=== PATIENT | male | born 1935 | race Caucasian/White ===

== ENCOUNTER → 2016-07-08 | Outpatient (CLI) | payer MEDICARE ==
--- NOTE | 2016-07-08 12:05 | FL ---
Modified barium swallow. HISTORY: Dysphagia. Modified barium swallow was performed with the department of speech pathology. The patient was prese nted with various consistencies of barium. There is penetration to the level of the vocal cords with various barium mixtures. No evidence for as piration at this time. Full report is to follow from the department of speech pathology. Impression: Penetration to the level of the vocal cords.
== END | disposition home or self-care (01) ==
LOC: RADFLMAIN 10:11
PROVIDERS: ATTEND Internal Medicine
DX: R13.12 Dysphagia, oropharyngeal phase (principal)
CPT/HCPCS: 74230

== ENCOUNTER 2017-07-29 15:10 | Inpatient (IN) | payer MEDICARE, OTHER ==
[2017-07-29] MEDS ORDERED: VANCOMYCIN IV PER PHARMACY 1 EACH MISC MISCELLANE PRN (15:38)
[2017-07-29] MEDS ORDERED: VANCOMYCIN 1,250 MG in SODIUM CHLORIDE 0.9% 250 ML IVPB STA (15:47)
--- NOTE | 2017-07-29 16:17 | ED ---
Skin/Abscess/FB HPI - General Chief complaint: Skin/Abscess/Foreign Body Stated complaint: Poss.dvt Time Seen by Provider: 07/29/17 15:18 Source: patient Mode of arrival: EMS Limitations: no limitations - History of Present Illness Initial comments: Patient is an 82-year-old male presenting to the emergency department for right leg swelling and redness. 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 His been at a nursing center and he was started on Keflex yesterday for presumed cellulitis of the right leg. However, they noticed today that his right leg was extremely swollen and that there is significant redness as well as blistering on the anterior surface of the leg. He has patient is a freezer, he is unable to give a complete review of systems. - Related Data Home Medications Medication Instructions Recorded Confirmed Aspirin EC [Ecotrin Low Dose] 81 mg PO DAILY 08/18/15 07/29/17 Acetaminophen Tab [Tylenol Tab] 650 mg PO Q4H PRN 07/29/17 07/29/17 Alendronate Sodium [Fosamax] 70 mg PO WE 07/29/17 07/29/17 Bismuth Subsalicylate 524 mg PO Q4H PRN 07/29/17 07/29/17 [Pepto-Bismol] Calcium Carbonate/Vitamin D3 1 tab PO BID 07/29/17 07/29/17 [Calcium 600-Vit D3 400 Caplet] Cephalexin [Keflex] 500 mg PO TID 07/29/17 07/29/17 Ibuprofen [Motrin] 400 mg PO Q6HR PRN 07/29/17 07/29/17 Lactose-Reduced Food [Ensure Plus] 1 can PO PC-TID 07/29/17 07/29/17 Loratadine [Claritin] 10 mg PO DAILY 07/29/17 07/29/17 Losartan [Cozaar] 25 mg PO DAILY 07/29/17 07/29/17 Metoprolol Tartrate [Lopressor] 25 mg PO BID 07/29/17 07/29/17 Ondansetron [Zofran] 4 mg PO Q6H PRN 07/29/17 07/29/17 Pioglitazone [Actos] 15 mg PO DAILY 07/29/17 07/29/17 glipiZIDE [Glucotrol] 5 mg PO HS 07/29/17 07/29/17 glipiZIDE [Glucotrol] 10 mg PO QAM 07/29/17 07/29/17 Allergies Allergy/AdvReac Type Severity Reaction Status Date / Time No Known Allergies Allergy Verified 07/29/17 15:56 Review of Systems ROS Statement: Those systems with pertinent positive or pertinent negative responses have been documented in the HPI. Unable to complete review of systems as the patient is aphasic ROS Other: All systems not noted in ROS Statement are negative. Past Medical History Past Medical History: Coronary Artery Disease (CAD), CVA/TIA, Diabetes Mellitus , Hypertension Additional Past Medical History / Comment(s): cva at 47 years old right side and speech, yes and no only questions, Brain bleed after fall had surgery. History of Any Multi-Drug Resistant Organisms: None Reported Past Surgical History: Orthopedic Surgery Past Anesthesia/Blood Transfusion Reactions: No Reported Reaction Past Psychological History: No Psychological Hx Reported Smoking Status: Former smoker Past Alcohol Use History: None Reported Past Drug Use History: None Reported General Exam - General Exam Comments Initial Comments: Physical Exam Constitutional: Pt is aphasic but alert Pt appears wwell-nourished. No distress. HENT: Head: Normocephalic and atraumatic. Eyes: EOM are normal. Neck: Normal range of motion. Neck supple. Cardiovascular: Normal rate, regular rhythm, S1 normal, S2 normal and normal heart sounds. Exam reveals no gallop and no friction rub. No murmur heard. Pulmonary/Chest: Effort normal and breath sounds normal. No tachypnea and no bradypnea. No respiratory distress. No wheezes or rales noted. Abdominal: Soft. Bowel sounds are normal. Pt exhibits no shifting dullness, no distension, no pulsatile liver, no fluid wave, no abdominal bruit and no ascites. There is no tenderness. There is no rigidity, no rebound, no guarding, no tenderness at McBurney's point and negative Case's sign. Musculoskeletal: Diffuse decreased range of motion Neurological: Pt is alert but unable to comply with complex neuro exam. There is residual right-sided deficits including weakness of the right upper and lower extremities. Skin: Skin is warm and dry. There is erythema and induration of the right leg extending from the right ankle to the right proximal thigh. There is excoriations of the right anterior christian measuring from 3-5 mm Psychiatric: Pt has a normal mood and affect. Pt behavior is normal. Thought content normal. Limitations: no limitations Course Vital Signs 07/29/17 15:27 Temperature 98.2 F Pulse Rate 79 Respiratory 18 Rate Blood Pressure 123/60 O2 Sat by Pulse 97 Oximetry Medical Decision Making - Medical Decision Making Laboratory studies revealed that there is no significant leukocytosis and lactic acid was not obtained because of problems obtaining blood. Additionally , labs showed that there is mild hyperkalemia of 5.3 but no significant findings on EKG were found. Case is discussed with PCP and it was advised that the patient be started on vancomycin as well as heparin. Because of the positive DVT findings on prior Doppler at outside facility, imaging was not repeated.Explained all labs and diagnostic test results and that we will admit patient to hospital. Pt is agreeable to plan and case has been discussed with PCP and they agree to accept the pt. - Lab Data Result diagrams: 07/29/17 16:21 07/29/17 16:21 Lab Results 07/29/17 07/29/17 07/29/17 Range/Units 16:21 16:21 16:21 WBC 7.8 (3.8-10.6) k/uL RBC 4.37 (4.30-5.90) m/uL Hgb 12.5 L (13.0-17.5) gm/dL Hct 38.2 L (39.0-53.0) % MCV 87.5 (80.0-100.0) fL MCH 28.7 (25.0-35.0) pg MCHC 32.8 (31.0-37.0) g/dL RDW 14.1 (11.5-15.5) % Plt Count 238 (150-450) k/uL Neutrophils % 60 % Lymphocytes % 25 % Monocytes % 7 % Eosinophils % 6 % Basophils % 1 % Neutrophils # 4.7 (1.3-7.7) k/uL Lymphocytes # 1.9 (1.0-4.8) k/uL Monocytes # 0.5 (0-1.0) k/uL Eosinophils # 0.5 (0-0.7) k/uL Basophils # 0.1 (0-0.2) k/uL Sodium 142 (137-145) mmol/L Potassium 5.3 H (3.5-5.1) mmol/L Chloride 109 H (98-107) mmol/L Carbon Dioxide 21 L (22-30) mmol/L Anion Gap 12 mmol/L BUN 44 H (9-20) mg/dL Creatinine 1.88 H (0.66-1.25) mg/dL Est GFR (CKD-EPI)AfAm 38 (>60 ml/min/1.73 sqM) Est GFR (CKD-EPI)NonAf 33 (>60 ml/min/1.73 sqM) Glucose 138 H (74-99) mg/dL Calcium 9.5 (8.4-10.2) mg/dL Magnesium 2.0 (1.6-2.3) mg/dL Total Bilirubin 0.3 (0.2-1.3) mg/dL AST 42 (17-59) U/L ALT 42 (21-72) U/L Alkaline Phosphatase 141 H (38-126) U/L Troponin I (0.000-0.034) ng/mL NT-Pro-B Natriuret Pep 545 pg/mL Total Protein 7.0 (6.3-8.2) g/dL Albumin 3.6 (3.5-5.0) g/dL 07/29/17 Range/Units 16:21 WBC (3.8-10.6) k/uL RBC (4.30-5.90) m/uL Hgb (13.0-17.5) gm/dL Hct (39.0-53.0) % MCV (80.0-100.0) fL MCH (25.0-35.0) pg MCHC (31.0-37.0) g/dL RDW (11.5-15.5) % Plt Count (150-450) k/uL Neutrophils % % Lymphocytes % % Monocytes % % Eosinophils % % Basophils % % Neutrophils # (1.3-7.7) k/uL Lymphocytes # (1.0-4.8) k/uL Monocytes # (0-1.0) k/uL Eosinophils # (0-0.7) k/uL Basophils # (0-0.2) k/uL Sodium (137-145) mmol/L Potassium (3.5-5.1) mmol/L Chloride (98-107) mmol/L Carbon Dioxide (22-30) mmol/L Anion Gap mmol/L BUN (9-20) mg/dL Creatinine (0.66-1.25) mg/dL Est GFR (CKD-EPI)AfAm (>60 ml/min/1.73 sqM) Est GFR (CKD-EPI)NonAf (>60 ml/min/1.73 sqM) Glucose (74-99) mg/dL Calcium (8.4-10.2) mg/dL Magnesium (1.6-2.3) mg/dL Total Bilirubin (0.2-1.3) mg/dL AST (17-59) U/L ALT (21-72) U/L Alkaline Phosphatase (38-126) U/L Troponin I <0.012 (0.000-0.034) ng/mL NT-Pro-B Natriuret Pep pg/mL Total Protein (6.3-8.2) g/dL Albumin (3.5-5.0) g/dL - EKG Data EKG Comments: EKG shows normal sinus rhythm with rate of 79 bpm, ID 162, QRS 64, QTC 419. There is no significant ST depressions or elevations as well as T-wave inversions. Disposition Clinical Impression: Cellulitis, DVT (deep venous thrombosis) Disposition: ADMITTED IP TO THIS [facility] Condition: Fair Is patient prescribed a controlled substance at d/c from ED?: No Referrals: Abdias Andrews MD [Primary Care Provider] - 1-2 days Time of Disposition: 17:25 Decision Date: 07/29/17 Decision Time: 17:25
[2017-07-29 16:44] LABS: Albumin 3.6 g/dL (3.5-5.0); Calcium 9.5 mg/dL (8.4-10.2); Potassium 5.3 mmol/L (3.5-5.1); Total Bilirubin 0.3 mg/dL (0.2-1.3)
[2017-07-29 16:52] LABS: Basophils # (A) 0.1 k/uL (0-0.2); Basophils % (A) 1 %; Eosinophils # (A) 0.5 k/uL (0-0.7); Eosinophils % (A) 6 %; HCT 38.2 % (39.0-53.0); HGB 12.5 gm/dL (13.0-17.5); Lymphocytes # (A) 1.9 k/uL (1.0-4.8); Lymphocytes % (A) 25 %; MCH 28.7 pg (25.0-35.0); MCHC 32.8 g/dL (31.0-37.0); MCV 87.5 fL (80.0-100.0); Mean Platelet Volume 7.2; Monocytes # (A) 0.5 k/uL (0-1.0); Monocytes % (A) 7 %; Neutrophils # (A) 4.7 k/uL (1.3-7.7); Neutrophils % (A) 60 %; Platelet Count 238 k/uL (150-450); RBC 4.37 m/uL (4.30-5.90); RDW 14.1 % (11.5-15.5); WBC 7.8 k/uL (3.8-10.6)
[2017-07-29] MEDS ORDERED: MORPHINE SULFATE 4MG/4ML SYRG IVP STA (17:12)
[2017-07-29] MEDS ORDERED: HEPARIN SODIUM,PORCINE 5,000 UNIT/ML 1 ML VIAL IV STA (17:16)
[2017-07-29] MEDS ORDERED: NALOXONE 0.4 MG/ML 1 ML VIAL IV PRN (17:18)
[2017-07-29] MEDS ORDERED: MORPHINE SULFATE 4 MG/0.8 ML SYRINGE (INJ) IV PRN (17:18)
[2017-07-29] MEDS: SODIUM CHLORIDE 0.9% 1,000 ML IV SCH (17:48)
[2017-07-29 18:00] LABS: INR 1.1 (<1.2); Partial Thromboplastin Time 23.6 sec (22.0-30.0); Prothrombin Time 10.3 sec (9.0-12.0)
[2017-07-29] MEDS: HEPARIN SOD,PORK IN 0.45% NACL 25,000 UNIT in 0.45% NACL 1 500ML.BAG IV SCH (18:00)
[2017-07-29] MEDS ORDERED: ONDANSETRON 4 MG TAB PO PRN (19:47)
[2017-07-29] MEDS ORDERED: BISMUTH SUBSALICYLATE 4,192 MG/240 ML BOTTLE PO PRN (19:47)
[2017-07-29] MEDS ORDERED: WARFARIN 7.5 MG TAB PO ONE (20:00)
[2017-07-29 20:39] LABS: Glucose,Whole Blood 90 mg/dL (75-99)
[2017-07-29] MEDS: CALCIUM CARB-VIT D 500MG-200UN 1 EACH TAB PO SCH (20:59)
[2017-07-29] MEDS: METOPROLOL TARTRATE 25 MG TAB PO SCH (20:59)
[2017-07-29] MEDS: glipiZIDE 5 MG TAB PO SCH (20:59)
--- NOTE | 2017-07-29 21:56 | HP ---
HISTORY AND PHYSICAL Mr. Colmenares is an 82-year-old gentleman who resides at [facility] on the [facility]. He has a history of a remote CVA, for which he has had right-sided deficits and was noted a couple days ago with increasing edema and erythema of the right lower extremity. The patient was started on cephalexin and a venous Doppler study was performed which revealed blockage in the entire deep venous system of the right lower extremity. The patient is being admitted for further treatment. As mentioned, he has a history of a remote CVA many years ago when he was approximately 52 years old. 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 Underlying risk factors include also diabetes, hyperlipidemia and hypertension. He had a previous subdural type hematoma after a fall several years ago. He also has underlying osteoporosis and a previous fracture of the right humerus. He does have some chronic sinus symptoms. His medications at the intermediate included: 1. Pepto-Bismol 524 mg q.4 hours p.r.n. 2. Acetaminophen 650 mg q.4 hours p.r.n. for pain. 3. Zofran 4 mg q.6 hours p.r.n. nausea, vomiting. 4. Ibuprofen 400 mg q.6 hours p.r.n. for pain. 5. Ensure Plus 1 can with meals 3 times a day. 6. As mentioned, prior to admission he was on Keflex 500 mg t.i.d. 7. Metoprolol 25 mg twice a day. 8. Losartan 25 mg daily. 9. Calcium carbonate with vitamin D3 600-400 one tablet twice a day. 10.Glucotrol 5 mg at bedtime and 10 mg in the morning. 11.Fosamax 70 mg weekly. 12.Actos 15 mg daily. 13.Claritin for his sinuses 10 mg daily. 14.Aspirin 81 mg daily. ALLERGIES: NO KNOWN ALLERGIES. REVIEW OF SYSTEMS: Other than in the history of present illness, the patient is very aphasic and is not able to give much of a review of systems. No other pertinent positives from the intermediate have been elicited. No apparent shortness of breath, fever, chills or cough. No nausea or vomiting. FAMILY HISTORY: Positive for diabetes and heart disease. SOCIAL HISTORY: The patient is a former smoker. He did live with his locally until his fall and fractured humerus, and since then he has resided at [facility] on the [place] over the last approximately 2 years. No history of any excessive alcohol usage. PHYSICAL EXAMINATION: Temperature is 97.8 with a pulse of 79, respirations 16, blood pressure 131/69, and he is 98% saturated on room air. There is no definite thyromegaly or adenopathy detected. Neck was supple. The lungs are generally clear. Heart tones were regular without murmurs. ABDOMEN: Soft and nontender without rebound, guarding or masses detected. Extremities revealed a markedly swollen 2-3 grade edema of the right lower extremity that was diffusely tender. There was also erythema and blistering of the shins present. Neurologically the patient once again is aphasic, but he is overall alert. Right hemiplegia is noted. Some contractures of the right upper extremity. No new focal deficits present. LABORATORY VALUES: White count 7.8 with a hemoglobin 12.5 and a platelet count of 238. His initial INR was 1.1 with a PTT of 23.6. Sodium is 142 with a potassium 5.3, CO2 content of 21, and BUN is 44 with a creatinine 1.88, giving him a GFR of 33. Random blood sugar was 138. Blood sugar was 90. His lactic acid was 1.2 venous. Calcium and magnesium were normal. Alkaline phosphatase was 141. Troponin was less than 0.012. BNP was 545. Albumin 3.6. The patient EKG reveals a sinus rhythm; no evidence of acute ischemic changes. Overall, as mentioned, a venous Doppler study showed extensive venous DVT in the right lower extremity. Overall impression at this point is acute DVT of the right lower extremity with a past history as stated above positive for old CVA with right hemiplegia, hypertension , hypercholesterolemia, diabetes, osteoporosis. At this point, heparin will be initiated along with Coumadin. Further recommendations and treatment pending clinical response and results of above. MMODL / IJN: [id number] / MILDRED
[2017-07-30] MEDS ORDERED: NON-FORMULARY DRUG (Lactose-Reduced Food [Ensure Plus] 1 CAN) PO SCH (08:30)
[2017-07-30 08:39] LABS: Calcium 8.9 mg/dL (8.4-10.2); Potassium 4.9 mmol/L (3.5-5.1)
[2017-07-30 08:41] LABS: INR 1.1 (<1.2)
--- NOTE | 2017-07-30 09:01 | P.PN ---
Progress Note - Text The patient is an 82-year-old gentleman who resides at [facility] on the [facility]. Patient has had a remote CVA and has had right-sided weakness and aphasia for many years. Patient presented yesterday with increasing swelling and pain, erythema of the right lower extremity. He was found on Doppler study to have extensive deep vein thrombosis of the right lower extremity per report. Patient has been started on heparin and Coumadin. this morning he is aroused. Alert. Does not appear to be any acute distress. He denies any chest pain or shortness of breath. Vital signs reveal temperature 97.3 with a pulse of 73 and respirations 18. Blood pressure was 109/66 and he was 95% saturated on room air. Lungs are clear. Heart regular without murmurs. Abdomen nontender. The right lower extremity is still rather swollen. Extends up into the thigh area. There is erythema and patches of skin breakdown on the christian. Overall though the swelling appears to be a bit less than yesterday. Patient does have underlying aphasia and right hemiplegia along with right upper extremity contracture as previously documented. No definite new changes. Laboratory INR this morning is 1.1. PTT is 63.0. Impression and plans We will continue with heparin along with another 7.5 of Coumadin today. Daily INR with PTTs. discharge planning to check with insurance to see if they may cover one of the alternative anticoagulants. Otherwise he will likely be able to return back to [facility] on the [place] where he will be monitored there. Likely at some point next week. His cellulitis also appears to be improving and for now we'll continue vancomycin. Dr. Zaheer Templeton on-call for me over the weekend if any problems or concerns should arise.
[2017-07-30] MEDS: SODIUM CHLORIDE 0.9% 1,000 ML IV SCH (09:42)
[2017-07-30] MEDS: LORATADINE 10 MG TAB PO SCH (09:42)
[2017-07-30] MEDS: LOSARTAN 25 MG TAB PO SCH (09:42)
[2017-07-30] MEDS: glipiZIDE 10 MG TAB PO SCH (09:42)
[2017-07-30] MEDS: METOPROLOL TARTRATE 25 MG TAB PO SCH ×2 (09:42→20:41)
[2017-07-30] MEDS: CALCIUM CARB-VIT D 500MG-200UN 1 EACH TAB PO SCH ×2 (09:42→20:41)
[2017-07-30] MEDS: ASPIRIN 81 MG PO SCH (09:42)
[2017-07-30] MEDS: PIOGLITAZONE 15 MG TAB PO SCH (09:42)
[2017-07-30] MEDS: ACETAMINOPHEN TAB 325 MG TAB PO PRN ×2 (10:00→20:55)
[2017-07-30] MEDS: VANCOMYCIN 1,250 MG in SODIUM CHLORIDE 0.9% 250 ML IVPB SCH (12:55)
[2017-07-30] MEDS ORDERED: MORPHINE ORAL SOLN 10 MG/5 ML CUP PO PRN (15:24)
[2017-07-30] MEDS: HEPARIN SOD,PORK IN 0.45% NACL 25,000 UNIT in 0.45% NACL 1 500ML.BAG IV SCH ×2 (16:25→19:08)
[2017-07-30] MEDS ORDERED: WARFARIN 7.5 MG TAB PO ONE (18:00)
[2017-07-30] MEDS: glipiZIDE 5 MG TAB PO SCH (20:41)
[2017-07-31] MEDS: SODIUM CHLORIDE 0.9% 1,000 ML IV SCH ×3 (05:41→20:16)
[2017-07-31] MEDS: LOSARTAN 25 MG TAB PO SCH (07:30)
[2017-07-31] MEDS: CALCIUM CARB-VIT D 500MG-200UN 1 EACH TAB PO SCH ×2 (07:30→20:17)
[2017-07-31] MEDS: PIOGLITAZONE 15 MG TAB PO SCH (07:30)
[2017-07-31] MEDS: ASPIRIN 81 MG PO SCH (07:30)
[2017-07-31] MEDS: METOPROLOL TARTRATE 25 MG TAB PO SCH ×2 (07:30→20:17)
[2017-07-31] MEDS: glipiZIDE 10 MG TAB PO SCH (07:30)
[2017-07-31] MEDS: LORATADINE 10 MG TAB PO SCH (07:30)
[2017-07-31 07:43] LABS: INR 1.4 (<1.2); Partial Thromboplastin Time 69.5 sec (22.0-30.0); Prothrombin Time 13.3 sec (9.0-12.0)
[2017-07-31] MEDS: VANCOMYCIN 1,250 MG in SODIUM CHLORIDE 0.9% 250 ML IVPB SCH (08:02)
[2017-07-31 08:09] LABS: Calcium 8.6 mg/dL (8.4-10.2); Potassium 4.9 mmol/L (3.5-5.1)
--- NOTE | 2017-07-31 09:39 | P.PN ---
Progress Note - Text The patient is an 82-year-old gentleman who was admitted from [facility] on the [facility] with an extensive right lower extremity DVT and cellulitis. Patient does have a history of a remote CVA with right hemiplegia and aphasia. Patient has been on heparin along with additional Coumadin. This morning he is alert. Aroused easily. No complaints of pain. He does not appear to be in any distress. Temperature is 90.8 with a pulse of 75 and respirations 16. Blood pressure 114/ 65 and he is 97% saturated on room air. Lungs are clear. Heart tones were regular. Abdomen nontender. The right extremity is still fairly swollen compared to the left. The erythema and lazar on the christian are markedly improved. No new neurological changes. Laboratory INR this morning is 1.4 Sodium is 144 with potassium 4.9. CO2 content is 18. BUN is 32 with creatinine 1.67 giving him a GFR of 38. Blood sugars in the morning have been in the 70s. Blood cultures are no growth after 24 hours. Impressions and plans Continue patient presently on heparin with Coumadin. Repeat labs with INR in the morning. We will decrease glipizide down to 5 mg twice a day. Expect return to [facility] early next week once Coumadin is therapeutic. Discharge planning to check into whether alternate anticoagulant may be covered by his insurance.
[2017-07-31] MEDS: glipiZIDE 5 MG TAB PO SCH (17:13)
[2017-07-31] MEDS ORDERED: WARFARIN 7.5 MG TAB PO ONE (18:00)
[2017-07-31] MEDS: HEPARIN SOD,PORK IN 0.45% NACL 25,000 UNIT in 0.45% NACL 1 500ML.BAG IV SCH (19:58)
[2017-08-01 07:35] LABS: INR 2.3 (<1.2); Prothrombin Time 20.9 sec (9.0-12.0)
[2017-08-01 07:54] LABS: Basophils # (A) 0.1 k/uL (0-0.2); Basophils % (A) 1 %; Eosinophils # (A) 0.5 k/uL (0-0.7); Eosinophils % (A) 6 %; HCT 34.4 % (39.0-53.0); HGB 11.4 gm/dL (13.0-17.5); Lymphocytes # (A) 1.8 k/uL (1.0-4.8); Lymphocytes % (A) 22 %; MCH 29.4 pg (25.0-35.0); MCHC 33.2 g/dL (31.0-37.0); MCV 88.6 fL (80.0-100.0); Mean Platelet Volume 6.8; Monocytes # (A) 0.6 k/uL (0-1.0); Monocytes % (A) 7 %; Neutrophils # (A) 5.1 k/uL (1.3-7.7); Neutrophils % (A) 62 %; Platelet Count 218 k/uL (150-450); RBC 3.88 m/uL (4.30-5.90); RDW 14.3 % (11.5-15.5); WBC 8.3 k/uL (3.8-10.6)
[2017-08-01] MEDS ORDERED: SODIUM CHLORIDE 0.9% 500 ML IV SCH (08:15)
--- NOTE | 2017-08-01 08:24 | P.PN ---
Progress Note - Text The patient is an 82-year-old gentleman who was admitted from [facility] on the [facility] with an extensive right lower extremity DVT along with element of cellulitis of the anterior right leg on presentation. Patient has a history of an old CVA with right hemiplegia and aphasia. Patient has been on heparin along with Coumadin and vancomycin for the cellulitis. The right leg this morning continues to decrease in size with decrease edema. The cellulitis of the right christian appears to be for the most part cleared. Patient is having assistance with feeding presently. He denies any unusual pain. No chest pain or shortness of breath. Vital signs reveal temperature 97.3 with a pulse of 75 and respirations 18. Blood pressure 134/76 and he is 95% saturated on room air. Lung and heart examination is clear and regular. Once again extremities show decreased edema and erythema and tenderness of the right lower extremity. Decreased down to 1-2+. No neurological deficits. Laboratory reveals an INR of 2.3 this morning. White count of 8.3 with a hemoglobin 11.4 and a platelet count of 218. Impressions and plans At this point the patient to be continued on Coumadin. We'll see if any other anticoagulant may be covered by his insurance otherwise he will continue on Coumadin at the shelter and likely since he has right hemiplegia and is not very mobile would continue the Coumadin indefinitely to prevent further recurrence. With resolution of the cellulitis will stop his antibiotics. Repeat INR in the morning. Possible discharge to [facility] tomorrow. Discussed with patient and nursing staff this morning.
[2017-08-01] MEDS: CALCIUM CARB-VIT D 500MG-200UN 1 EACH TAB PO SCH ×2 (08:30→20:38)
[2017-08-01] MEDS: METOPROLOL TARTRATE 25 MG TAB PO SCH ×2 (08:30→20:38)
[2017-08-01] MEDS: ASPIRIN 81 MG PO SCH (08:30)
[2017-08-01] MEDS: LOSARTAN 25 MG TAB PO SCH (08:30)
[2017-08-01] MEDS: LORATADINE 10 MG TAB PO SCH (08:30)
[2017-08-01] MEDS: PIOGLITAZONE 15 MG TAB PO SCH (08:30)
[2017-08-01] MEDS: glipiZIDE 5 MG TAB PO SCH ×2 (08:31→17:31)
[2017-08-01 09:08] LABS: Calcium 8.7 mg/dL (8.4-10.2); Potassium 4.6 mmol/L (3.5-5.1)
[2017-08-01 17:16] LABS: Glucose,Whole Blood 93 mg/dL (75-99)
[2017-08-01] MEDS ORDERED: WARFARIN 2.5 MG TAB PO SCH (18:00)
[2017-08-01 20:02] LABS: Glucose,Whole Blood 134 mg/dL (75-99)
[2017-08-01] MEDS: ACETAMINOPHEN TAB 325 MG TAB PO PRN (20:54)
[2017-08-02 07:12] LABS: Glucose,Whole Blood 80 mg/dL (75-99)
[2017-08-02 07:46] VITALS: BP 128/81; PULSE 68; RESP 16; TEMP 98.3
[2017-08-02 07:48] LABS: INR 2.9 (<1.2); Prothrombin Time 25.7 sec (9.0-12.0)
[2017-08-02 08:02] LABS: Calcium 8.6 mg/dL (8.4-10.2); Potassium 4.5 mmol/L (3.5-5.1)
[2017-08-02] MEDS: LORATADINE 10 MG TAB PO SCH (08:10)
[2017-08-02] MEDS: METOPROLOL TARTRATE 25 MG TAB PO SCH (08:10)
[2017-08-02] MEDS: ASPIRIN 81 MG PO SCH (08:10)
[2017-08-02] MEDS: LOSARTAN 25 MG TAB PO SCH (08:10)
[2017-08-02] MEDS: CALCIUM CARB-VIT D 500MG-200UN 1 EACH TAB PO SCH (08:10)
[2017-08-02] MEDS: glipiZIDE 5 MG TAB PO SCH (08:10)
[2017-08-02] MEDS: PIOGLITAZONE 15 MG TAB PO SCH (08:11)
--- NOTE | 2017-08-02 08:38 | P.DS ---
Providers Date of admission: 07/29/17 17:19 Attending physician: Abdias Andrews Primary care physician: Abdias Andrews The patient is an 82-year-old gentleman who resides at [facility] on the [facility]. He has a previous history of remote CVA and right-sided weakness. Patient developed a swelling and erythema of the right lower extremity and was found to have extensive DVT on Doppler along with a cellulitis of the right leg. The patient was treated with heparin and Coumadin was added. Laboratory studies revealed a white count of 7.8 with a hemoglobin 12.5 and a platelet count of 238. Initial INR was 1.1 but this did increase up to 2.9 with Coumadin. Other labs revealed a BUN of 44 with creatinine 1.88 given him a GFR of 33. Random blood sugar was 138. EKG did not show any evidence of ischemic changes. Hospital course With the treatment the patient's right leg improved significantly with decrease edema and erythema. He was treated with IV vancomycin which was DC'd once resolution occurred of his cellulitis. The patient apparently has coverage for Eloquis and will anticipate him being discharged on Eloquis and we'll hold his Coumadin. Discharge medications Eloquis 5 mg twice a day will be initiated once his INR decreases back to 2.0 or less. He will discontinue aspirin 81 mg daily. Also he is to discontinue any use of ibuprofen or other anti-inflammatory medication. Acetaminophen 650 mg every 4 hours when necessary for pain. The patient can resume his Pepto-Bismol 524 mg every 4 hours when necessary Zofran 4 mg by mouth every 6 hours when necessary nausea Ensure Plus 1 can with meals 3 times a day Lopressor 25 mg twice a day Cozaar 25 mg daily Calcium 600 mg with vitamin D3 400 mg caplet twice a day Glipizide has been decreased to 5 mg twice a day Fosamax 70 mg weekly Actos 15 mg daily Claritin 10 mg daily Patient to have INR performed on Tuesday. If less than 2.0 he will begin his Eloquis 5 mg twice a day. Final diagnoses 1. Acute extensive DVT of the right lower extremity with swelling. 2. Cellulitis of the right leg. 3. History of old CVA with right hemiplegia 4. Type 2 diabetes 5. Hypertension 6. Hyperlipidemia 8. Osteoporosis 9. History of fall and right fracture of the humerus. 10. Chronic sinus symptoms. He is continue on his previous diet. As tolerated. Patient Condition at Discharge: Fair Plan - Discharge Summary Discharge Rx Participant: No New Discharge Prescriptions: No Action RX: Aspirin EC [Ecotrin Low Dose] 81 mg PO DAILY Bismuth Subsalicylate [Pepto-Bismol] 524 mg PO Q4H PRN PRN Reason: Loose Stool Acetaminophen Tab [Tylenol Tab] 650 mg PO Q4H PRN PRN Reason: Fever And/ Or Pain Ondansetron [Zofran] 4 mg PO Q6H PRN PRN Reason: Nausea And Vomiting Ibuprofen [Motrin] 400 mg PO Q6HR PRN PRN Reason: Pain Lactose-Reduced Food [Ensure Plus] 1 can PO PC-TID Cephalexin [Keflex] 500 mg PO TID Metoprolol Tartrate [Lopressor] 25 mg PO BID Losartan [Cozaar] 25 mg PO DAILY Calcium Carbonate/Vitamin D3 [Calcium 600-Vit D3 400 Caplet] 1 tab PO BID glipiZIDE [Glucotrol] 5 mg PO HS glipiZIDE [Glucotrol] 10 mg PO QAM Alendronate Sodium [Fosamax] 70 mg PO WE Pioglitazone [Actos] 15 mg PO DAILY Loratadine [Claritin] 10 mg PO DAILY Discharge Medication List RX: Aspirin EC [Ecotrin Low Dose] 81 mg PO DAILY 08/18/15 [History] Acetaminophen Tab [Tylenol Tab] 650 mg PO Q4H PRN 07/29/17 [History] Alendronate Sodium [Fosamax] 70 mg PO WE 07/29/17 [History] Bismuth Subsalicylate [Pepto-Bismol] 524 mg PO Q4H PRN 07/29/17 [History] Calcium Carbonate/Vitamin D3 [Calcium 600-Vit D3 400 Caplet] 1 tab PO BID [History] Cephalexin [Keflex] 500 mg PO TID 07/29/17 [History] Ibuprofen [Motrin] 400 mg PO Q6HR PRN 07/29/17 [History] Lactose-Reduced Food [Ensure Plus] 1 can PO PC-TID 07/29/17 [History] Loratadine [Claritin] 10 mg PO DAILY 07/29/17 [History] Losartan [Cozaar] 25 mg PO DAILY 07/29/17 [History] Metoprolol Tartrate [Lopressor] 25 mg PO BID 07/29/17 [History] Ondansetron [Zofran] 4 mg PO Q6H PRN 07/29/17 [History] Pioglitazone [Actos] 15 mg PO DAILY 07/29/17 [History] glipiZIDE [Glucotrol] 5 mg PO HS 07/29/17 [History] glipiZIDE [Glucotrol] 10 mg PO QAM 07/29/17 [History] Follow up Appointment(s)/Referral(s): Abdias Andrews MD [Primary Care Provider] - 1-2 days
[2017-08-02] MEDS ORDERED: APIXABAN 5 MG TAB PO SCH (09:00)
[2017-08-02 11:12] LABS: Glucose,Whole Blood 104 mg/dL (75-99)
[2017-08-03] MEDS ORDERED: NON-FORMULARY DRUG (Alendronate Sodium [Fosamax] 70 MG) PO SCH (19:47)
== END 2017-08-02 16:45 | disposition home or self-care (01) | DRG 300 ==
LOC: EC 15:10 → 5MS5E 17:19
PROVIDERS: ADMIT Internal Medicine; ATTEND Internal Medicine
DX: I82.401 Acute embolism and thrombosis of unspecified deep veins of right lower extremity (principal); L03.115 Cellulitis of right lower limb; I69.351 Hemiplegia and hemiparesis following cerebral infarction affecting right dominant side; I25.10 Atherosclerotic heart disease of native coronary artery without angina pectoris; E11.9 Type 2 diabetes mellitus without complications; M81.0 Age-related osteoporosis without current pathological fracture; E78.5 Hyperlipidemia, unspecified; I10 Essential (primary) hypertension; J32.9 Chronic sinusitis, unspecified; E87.5 Hyperkalemia; I69.320 Aphasia following cerebral infarction; I69.398 Other sequelae of cerebral infarction; Z79.82 Long term (current) use of aspirin; Z79.899 Other long term (current) drug therapy; Z79.84 Long term (current) use of oral hypoglycemic drugs; Z87.820 Personal history of traumatic brain injury; Z87.891 Personal history of nicotine dependence; Z79.83 Long term (current) use of bisphosphonates; Z83.3 Family history of diabetes mellitus; Z82.49 Family history of ischemic heart disease and other diseases of the circulatory system
CPT/HCPCS: 36415; 80048; 80053; 83605; 83735; 83880; 84484; 85025; 85610; 85730; 87040; 93005; 96365; 96366; 96368; 96375; 96376; 99285

== ENCOUNTER 2019-04-18 14:39 | Inpatient (IN) | payer MEDICARE, OTHER ==
[2019-04-18] MEDS ORDERED: SODIUM CHLORIDE 0.9% 1,000 ML IV STA (14:44)
[2019-04-18 15:10] LABS: Glucose,Whole Blood 366 mg/dL (75-99)
--- NOTE | 2019-04-18 15:10 | ED ---
General Adult HPI - General Stated complaint: lethargy Time Seen by Provider: 04/18/19 14:39 Source: RN notes reviewed, old records reviewed - History of Present Illness Initial comments: This is an 83-year-old male who presents to us from a alf according to Dr. Navarro the patient has had diarrhea and vomiting and appears to be dehydrated and also the patient has altered mental status. Dr. Navarro she also noted a left upper quadrant mass that she stated she had not previously seen. When EMS arrived they called into us that the mass appeared to be pulsatile and wanted to bring him in as a constitution party one which they did. Patient is unable to give us any history is comfortable the bedside and states she does not want any CPR and she does not want any intubation. - Related Data Home Medications Medication Instructions Recorded Confirmed Bismuth Subsalicylate 524 mg PO Q4H PRN 07/29/17 04/18/19 [Pepto-Bismol] Calcium Carbonate/Vitamin D3 1 tab PO BID@899,209907/29/17 04/18/19 [Calcium 600-Vit D3 400 Caplet] Lactose-Reduced Food [Ensure Plus] 1 can PO PC-TID 07/29/17 04/18/19 Metoprolol Tartrate [Lopressor] 25 mg PO BID@899,209907/29/17 04/18/19 Pioglitazone [Actos] 15 mg PO DAILY@89907/29/17 04/18/19 ALPRAZolam [Xanax] 0.25 mg PO HS@199904/18/19 04/18/19 Acetaminophen [Tylenol 8 Hour] 650 mg PO BID@899,209904/18/19 04/18/19 Acetaminophen [Tylenol 8 Hour] 650 mg PO Q4H PRN 04/18/19 04/18/19 Ammonium Lactate Lotion 1 applic TOPICAL BID 04/18/19 04/18/19 [Lac-Hydrin 12% Lotion] Apixaban [Eliquis] 2.5 mg PO BID@0900,209904/18/19 04/18/19 Arginaid Extra 8 oz PO DAILY@0804/18/19 04/18/19 Furosemide [Lasix] 20 mg PO DAILY@89904/18/19 04/18/19 INSULIN ASPART (NovoLOG) [NovoLOG 6 unit SQ ONCE PRN 04/18/19 04/18/19 (formulary)] Insulin Aspart [NovoLOG] 7 units SQ DAILY 04/18/19 04/18/19 Losartan [Cozaar] 25 mg PO Q48H 04/18/19 04/18/19 Magnesium Hydroxide [Milk of 2,400 mg PO DAILY PRN 04/18/19 04/18/19 Magnesia] Ondansetron Odt [Zofran Odt] 4 mg PO DAILY@0900 04/18/19 04/18/19 Triamcinolone 0.1% Cream [Kenalog 1 applicatio TOPICAL MOWEFR 04/18/19 04/18/19 0.1% Cream] Allergies Allergy/AdvReac Type Severity Reaction Status Date / Time No Known Allergies Allergy Verified 04/18/19 15:08 Review of Systems ROS Statement: Those systems with pertinent positive or pertinent negative responses have been documented in the HPI. ROS Other: All systems not noted in ROS Statement are negative. Past Medical History Past Medical History: Coronary Artery Disease (CAD), CVA/TIA, Diabetes Mellitus, Hypertension Additional Past Medical History / Comment(s): PT IS A POOR HISTORIAN. cva at 47 years old right side and speech, yes and no only questions AND STATED AT TIME HE MIXES THE YES AND NO RESPONSES UP. 2013 FELL HIT HEAD HAD Brain bleed AND STATED HE HAD SX TO REMOVE A BLOOD CLOT, FX RIBS, RT SHOULDER, LT HIP D/T FALLS,OSTEOPOROSIS, CATARACTS- STATED HE IS ALMOST BLIND GLASSES DID'NT HELP SO HE DOES'NT WEAR THEM. PT NEEDS ASSIST WITH EATING, ADLS, STATED HE IS UNABLE TO STAND ON HIS OWN. GETS ASSIST OF 2 FROM BED TO CHAIR. INCONT OF BOTH DARIAN/URINE WEARS A BRIEF. History of Any Multi-Drug Resistant Organisms: MRSA Date of last positivie culture/infection: 10/12/17 MDRO Source:: LEG Past Surgical History: Cholecystectomy, Joint Replacement Additional Past Surgical History / Comment(s): LT HIP REPLACMENT, 2013- BRAIN SX TO REMOVED BLOOD CLOT Past Anesthesia/Blood Transfusion Reactions: No Reported Reaction Smoking Status: Former smoker - Past Family History Mother Family Medical History: Cancer Additional Family Medical History / Comment(s): MOM AGE 36 FROM UTERINE CANCER Father Family Medical History: Myocardial Infarction ([place]) Additional Family Medical History / Comment(s): AGE 56 FROM [place] General Exam - General Exam Comments Initial Comments: GENERAL: Patient is well-developed and well-nourished. Patient is nontoxic and well- hydrated and patient is unresponsive. ENT: Neck is soft and supple. Oropharynx is clear. Dry mucous membranes EYES: The sclera were anicteric and conjunctiva were pink and moist. Extraocular movements were intact and pupils were equal round and reactive to light. Eyelids were unremarkable. PULMONARY: Unlabored respirations. Good breath sounds bilaterally. No audible rales rhonchi or wheezing was noted. CARDIOVASCULAR: There is a regular rate and rhythm without any murmurs gallops or rubs. ABDOMEN: Patient has a large pulsatile left upper quadrant mass SKIN: Skin is clear with no lesions or rashes and otherwise unremarkable. NEUROLOGIC: Patient is not alert or oriented. states he normally can see his note when he is not currently responding to any of her questions. MUSCULOSKELETAL: Unable to assess PSYCHIATRIC: Unable to assess Course Vital Signs 04/18/19 04/18/19 04/18/19 14:47 15:05 16:00 Temperature 98.5 F Pulse Rate 98 98 96 Respiratory 18 18 18 Rate Blood Pressure 102/66 108/87 110/73 O2 Sat by Pulse 92 L 96 96 Oximetry Medical Decision Making - Medical Decision Making EKG shows normal sinus rhythm at 97 bpm [place] interval 164 QRS is 54 QT interval 348 QTC is 441. Patient's EKG shows no ST segment elevation or depression there is some T-wave inversion V1 and V2 and V3. CT of the abdomen shows a 10 x 8 cm abdominal aortic aneurysm that is not leaking. CT of the brain shows old infarcts but no acute abnormality. Chest x-ray shows a pneumonia as does the CAT scan. I started the patient on antibiotics. I spoke with the family the and 2 daughters and they did not want any CPR or have the patient on a ventilator. Family also stated that they do not want any surgeries. And family at this point wants the patient treated for pneumonia but will discuss among themselves options regarding hospice. I spoke with Dr. Cat he agreed to admit the patient admitted the patient I wrote admitting orders - Lab Data Result diagrams: 04/18/19 15:05 04/18/19 15:05 Lab Results 04/18/19 04/18/19 04/18/19 Range/Units 15:05 15:05 15:05 WBC 7.9 (3.8-10.6) k/uL RBC 3.44 L (4.30-5.90) m/uL Hgb 10.6 L (13.0-17.5) gm/dL Hct 35.1 L (39.0-53.0) % MCV 102.1 H (80.0-100.0) fL MCH 30.8 (25.0-35.0) pg MCHC 30.2 L (31.0-37.0) g/dL RDW 13.7 (11.5-15.5) % Plt Count 119 L (150-450) k/uL Neutrophils % 82 % Lymphocytes % 11 % Monocytes % 5 % Eosinophils % 0 % Basophils % 1 % Neutrophils # 6.5 (1.3-7.7) k/uL Lymphocytes # 0.8 L (1.0-4.8) k/uL Monocytes # 0.4 (0-1.0) k/uL Eosinophils # 0.0 (0-0.7) k/uL Basophils # 0.0 (0-0.2) k/uL Hypochromasia Moderate Macrocytosis Slight PT 13.9 H (9.0-12.0) sec INR 1.4 H (<1.2) APTT 26.9 (22.0-30.0) sec Sodium 157 H (137-145) mmol/L Potassium 3.4 L (3.5-5.1) mmol/L Chloride 126 H (98-107) mmol/L Carbon Dioxide 21 L (22-30) mmol/L Anion Gap 10 mmol/L BUN 93 H (9-20) mg/dL Creatinine 3.84 H (0.66-1.25) mg/dL Est GFR (CKD-EPI)AfAm 16 (>60 ml/min/1.73 sqM) Est GFR (CKD-EPI)NonAf 14 (>60 ml/min/1.73 sqM) Glucose 325 H (74-99) mg/dL POC Glucose (mg/dL) (75-99) mg/dL POC Glu Building Insulation Installer ID Plasma Lactic Acid Booker (0.7-2.0) mmol/L Calcium 8.0 L (8.4-10.2) mg/dL Magnesium 2.1 (1.6-2.3) mg/dL Total Bilirubin 0.6 (0.2-1.3) mg/dL AST 35 (17-59) U/L ALT 29 (4-49) U/L Alkaline Phosphatase 169 H (38-126) U/L Total Protein 5.9 L (6.3-8.2) g/dL Albumin 2.7 L (3.5-5.0) g/dL Amylase <30 L (30-110) U/L Lipase 44 (23-300) U/L Urine Color Urine Appearance (Clear) Urine pH (5.0-8.0) Ur Specific [place] (1.001-1.035) Urine Protein (Negative) Urine Glucose (UA) (Negative) Urine Ketones (Negative) Urine Blood (Negative) Urine Nitrite (Negative) Urine Bilirubin (Negative) Urine Urobilinogen (<2.0) mg/dL Ur Leukocyte Esterase (Negative) Urine RBC (0-5) /hpf Urine WBC (0-5) /hpf Ur Squamous Epith Cells (0-4) /hpf Amorphous Sediment (None) /hpf Urine Bacteria (None) /hpf Urine Mucus (None) /hpf 04/18/19 04/18/19 04/18/19 Range/Units 15:05 15:08 15:20 WBC (3.8-10.6) k/uL RBC (4.30-5.90) m/uL Hgb (13.0-17.5) gm/dL Hct (39.0-53.0) % MCV (80.0-100.0) fL MCH (25.0-35.0) pg MCHC (31.0-37.0) g/dL RDW (11.5-15.5) % Plt Count (150-450) k/uL Neutrophils % % Lymphocytes % % Monocytes % % Eosinophils % % Basophils % % Neutrophils # (1.3-7.7) k/uL Lymphocytes # (1.0-4.8) k/uL Monocytes # (0-1.0) k/uL Eosinophils # (0-0.7) k/uL Basophils # (0-0.2) k/uL Hypochromasia Macrocytosis PT (9.0-12.0) sec INR (<1.2) APTT (22.0-30.0) sec Sodium (137-145) mmol/L Potassium (3.5-5.1) mmol/L Chloride (98-107) mmol/L Carbon Dioxide (22-30) mmol/L Anion Gap mmol/L BUN (9-20) mg/dL Creatinine (0.66-1.25) mg/dL Est GFR (CKD-EPI)AfAm (>60 ml/min/1.73 sqM) Est GFR (CKD-EPI)NonAf (>60 ml/min/1.73 sqM) Glucose (74-99) mg/dL POC Glucose (mg/dL) 366 H (75-99) mg/dL POC Glu Building Insulation Installer ID Dani Kunz Plasma Lactic Acid Booker 5.6 H* (0.7-2.0) mmol/L Calcium (8.4-10.2) mg/dL Magnesium (1.6-2.3) mg/dL Total Bilirubin (0.2-1.3) mg/dL AST (17-59) U/L ALT (4-49) U/L Alkaline Phosphatase (38-126) U/L Total Protein (6.3-8.2) g/dL Albumin (3.5-5.0) g/dL Amylase (30-110) U/L Lipase (23-300) U/L Urine Color Yellow Urine Appearance Cloudy (Clear) Urine pH 5.0 (5.0-8.0) Ur Specific [place] 1.018 (1.001-1.035) Urine Protein Trace H (Negative) Urine Glucose (UA) 4+ H (Negative) Urine Ketones Negative (Negative) Urine Blood Negative (Negative) Urine Nitrite Negative (Negative) Urine Bilirubin Negative (Negative) Urine Urobilinogen <2.0 (<2.0) mg/dL Ur Leukocyte Esterase Negative (Negative) Urine RBC <1 (0-5) /hpf Urine WBC 1 (0-5) /hpf Ur Squamous Epith Cells 1 (0-4) /hpf Amorphous Sediment Rare H (None) /hpf Urine Bacteria Rare H (None) /hpf Urine Mucus Rare H (None) /hpf Disposition Clinical Impression: Aortic aneurysm, abdominal, Pneumonia, Sepsis, Dehydration, Gastroenteritis Disposition: ADMITTED IP TO THIS HOSP Referrals: Vicki Navarro MD [Primary Care Provider] - 1-2 days Time of Disposition: 16:35
--- NOTE | 2019-04-18 15:19 | CT ---
EXAMINATION TYPE: CT abdomen pelvis wo con DATE OF EXAM: 04/18/2019 COMPARISON: None HISTORY: 83-year-old male Pulsating in abdominal area CT DLP: 643.2 mGycm. Automated exposure control for dose reduction was used. TECHNIQUE: Contiguous axial scanning of the abdomen and pelvis without IV contrast. Coronal and sagit nilson reconstructions performed. FINDINGS: Heart normal size without pericardial effusion. Prominent patchy consolidation posterior right base. No pleural effusion. Noncontrast appearance of the liver, adrenal glands, spleen with splenule appear within normal limits . 3.7 cm cyst lateral right kidney. Smaller 1.3 cm hypodensity posterior right kidney too small fractur ed CT characterization, probable cyst. Atretic right kidney. There is an indeterminate 2.1 cm lesion within the tail of the pancreas showing attenuation of negati ve Hounsfield units suggesting a cystic pancreatic lesion. Remainder of the pancreas shows mild fatty atrophy. No dilated small bowel, free fluid, or free air. Very large infrarenal AAA measuring up to 10.1 x 8.5 cm spanning 11.9 cm from top to bottom. 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 Multiple bladder wall diverticula measuring up to 2.2 cm. Prominent stool distending the rectum up to 7.7 cm wide. Bones: Right-sided screw fixation partially visualized. No osseous destructive process. IMPRESSION: 1. Massive AAA measuring 10.1 x 8.5 cm. Patient should be evaluated by vascular surgery. No signs of rupture at this time. 2. 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 3. Patchy consolidation posterior right base. Correlate for pneumonia. 4. A stool distending the rectum up to 7.7 cm wide may reflect fecal impaction.
[2019-04-18 15:24] LABS: Basophils % (A) 1 %; Eosinophils % (A) 0 %; HCT 35.1 % (39.0-53.0); HGB 10.6 gm/dL (13.0-17.5); Hypochromasia Moderate; Lymphocytes # (A) 0.8 k/uL (1.0-4.8); Lymphocytes % (A) 11 %; MCH 30.8 pg (25.0-35.0); MCHC 30.2 g/dL (31.0-37.0); MCV 102.1 fL (80.0-100.0); Macrocytosis Slight; Mean Platelet Volume 9.2; Monocytes # (A) 0.4 k/uL (0-1.0); Monocytes % (A) 5 %; Neutrophils # (A) 6.5 k/uL (1.3-7.7); Neutrophils % (A) 82 %; Platelet Count 119 k/uL (150-450); RBC 3.44 m/uL (4.30-5.90); RDW 13.7 % (11.5-15.5); WBC 7.9 k/uL (3.8-10.6)
[2019-04-18 15:28] LABS: AST 35 U/L (17-59); African American GFR (CKD) 16 (>60 ml/min/1.73 sqM); Albumin 2.7 g/dL (3.5-5.0); Alkaline Phosphatase 169 U/L (38-126); Amylase <30 U/L (30-110); Anion Gap 10 mmol/L; Blood Urea Nitrogen 93 mg/dL (9-20); Carbon Dioxide 21 mmol/L (22-30); Chloride 126 mmol/L (98-107); Glucose 325 mg/dL (74-99); Magnesium 2.1 mg/dL (1.6-2.3); Non-African American GFR(CKD) 14 (>60 ml/min/1.73 sqM); Potassium 3.4 mmol/L (3.5-5.1); Sodium 157 mmol/L (137-145); Total Bilirubin 0.6 mg/dL (0.2-1.3); Total Protein 5.9 g/dL (6.3-8.2)
[2019-04-18 15:29] LABS: INR 1.4 (<1.2); Partial Thromboplastin Time 26.9 sec (22.0-30.0); Prothrombin Time 13.9 sec (9.0-12.0)
[2019-04-18 15:35] LABS: Amorphous Sediment,Urine Rare /hpf; Appearance,Urine Cloudy (Clear); Bacteria,Urine Rare /hpf; Bilirubin,Urine Negative (Negative); Blood,Urine Negative (Negative); Color,Urine Yellow; Glucose,Urine (UA) 4+ (Negative); Ketones,Urine Negative (Negative); Leukocyte Esterase,Urine Negative (Negative); Mucus,Urine Rare /hpf; Nitrite,Urine Negative (Negative); Protein,Urine Trace (Negative); RBC,Urine <1 /hpf (0-5); Specific Gravity,Urine 1.018 (1.001-1.035); Squamous Epithelial Cell,Urine 1 /hpf (0-4); Urobilinogen,Urine <2.0 mg/dL (<2.0); WBC,Urine 1 /hpf (0-5)
[2019-04-18 15:35] LABS: ALT 29 U/L (4-49)
--- NOTE | 2019-04-18 15:52 | CT ---
EXAMINATION TYPE: CT brain wo con DATE OF EXAM: 04/18/2019 COMPARISON: 02/25/2013 HISTORY: 83-year-old male confusion, Mental status changes TECHNIQUE: Examination was done in axial plane without intravenous contrast. Coronal and sagittal r econstructions performed. CT DLP: 1202.4 mGycm Automated exposure control for dose reduction was used. FINDINGS: Bur holes along the right lateral convexity. Large area of subinsular encephalomalacia and confluent white matter hypodensity remainder of the lef t cerebral hemisphere is unchanged with corresponding left ventricular enlargement, likely on an ex v acuo basis. Minimal rightward bulging of the midline septum and 4 mm is unchanged. Old lacunar infarct right basal ganglia. No extra-axial fluid collection. No evidence for acute intracranial hemorrhage. No effacement of basa l subarachnoid cisterns. Paranasal sinuses and mastoid air cells are well pneumatized. Orbits and globes are intact. IMPRESSION: 1. 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 2. Stable asymmetric ex vacuo enlargement of the left lateral ventricle. 3. Slight bulging of the midline septum towards the right by 4 mm is unchanged back to 2012. 4. No acute intracranial abnormality seen.
--- NOTE | 2019-04-18 15:53 | XR ---
EXAMINATION TYPE: XR chest 2V DATE OF EXAM: 04/18/2019 COMPARISON: 12/27/[address] abdomen and pelvis same day HISTORY: 83-year-old male breath, difficulty breathing TECHNIQUE: AP and lateral views FINDINGS: Heart upper limits of normal in size. Similar elongation/ectasia of the thoracic aorta. Mild intersti tial prominence appears chronic. Patchy opacity at the posterior aspect of the lower lung on the late ral view. IMPRESSION: On the lateral view, there is some focal opacity posteriorly along the lower lung suggestive of pneum onia given findings on CT same day.
[2019-04-18] MEDS ORDERED: cefTRIAXone IN SWFI 1,000 MG/10 ML SYRINGE IVP STA ×2 (16:14→16:55)
[2019-04-18] MEDS ORDERED: PNEUMONIA PROTOCOL UTILIZED 1 EACH MISC PO PRN (16:46)
[2019-04-18] MEDS ORDERED: LEVOFLOXACIN 750MG-D5W PMX 750 MG in DEXTROSE/WATER 1 150ML.BAG IVPB STA (16:46)
[2019-04-18] MEDS ORDERED: PIPERACILLIN-TAZOBACTAM 3.375 GM in SODIUM CHLORIDE 0.9% 100 ML IVPB STA (16:46)
[2019-04-18] MEDS ORDERED: TRIAMCINOLONE 0.1% CREAM 80 GM TUBE TOPICAL SCH (22:30)
[2019-04-19] MEDS ORDERED: ACETAMINOPHEN TAB 325 MG TAB PO PRN (00:11)
[2019-04-19] MEDS: PIPERACILLIN-TAZOBACTAM 3.375 GM in SODIUM CHLORIDE 0.9% 100 ML IVPB SCH ×3 (00:12→21:07)
[2019-04-19 06:15] LABS: Glucose,Whole Blood 374 mg/dL (75-99)
[2019-04-19] MEDS: INSULIN ASPART (NovoLOG) 100 UNIT/ML VIAL SQ SCH ×4 (06:56→20:48)
[2019-04-19] MEDS ORDERED: ACETAMINOPHEN TAB 325 MG TAB PO SCH (09:00)
[2019-04-19 12:35] LABS: Glucose,Whole Blood 286 mg/dL (75-99)
[2019-04-19] MEDS: METOPROLOL TARTRATE 25 MG TAB PO SCH ×2 (12:43→20:48)
[2019-04-19] MEDS: APIXABAN 2.5 MG TABLET PO SCH ×2 (12:43→20:48)
[2019-04-19] MEDS: PIOGLITAZONE 15 MG TAB PO SCH (12:43)
--- NOTE | 2019-04-19 15:08 | XR ---
EXAMINATION TYPE: XR chest 1V DATE OF EXAM: 04/19/2019 CLINICAL HISTORY: Pneumonia progress study. TECHNIQUE: Single AP portable upright view of the chest is obtained. COMPARISON: Chest x-ray from one day earlier and older studies. FINDINGS: Overlying EKG leads redemonstrated. Osseous structures remain demineralized. Dextroconvex scoliosis centered upper to mid thoracic spine again seen. Cardiac silhouette size stable and upper l imits of normal with atherosclerotic and ectatic thoracic aorta. Prior visualized retrocardiac opacit y seen best on lateral view less well-seen on frontal view. No new focal airspace opacity, pleural ef fusion, or pneumothorax. Low lung volumes redemonstrated. IMPRESSION: Likely stable right medial basilar acute infiltrate and/or atelectasis. No new focal infi ltrate is seen.
[2019-04-19 16:50] LABS: Glucose,Whole Blood 192 mg/dL (75-99)
[2019-04-19] MEDS ORDERED: LEVOFLOXACIN 750MG-D5W PMX 750 MG in DEXTROSE/WATER 1 150ML.BAG IVPB SCH (18:00)
[2019-04-19] MEDS ORDERED: LEVOFLOXACIN 500MG-D5W PMX 500 MG in DEXTROSE/WATER 1 100ML.BAG IVPB SCH (19:00)
[2019-04-19 20:28] LABS: Glucose,Whole Blood 189 mg/dL (75-99)
[2019-04-20 06:08] LABS: Glucose,Whole Blood 279 mg/dL (75-99)
[2019-04-20] MEDS: INSULIN ASPART (NovoLOG) 100 UNIT/ML VIAL SQ SCH ×2 (06:20→12:34)
[2019-04-20] MEDS: PIOGLITAZONE 15 MG TAB PO SCH (08:06)
[2019-04-20] MEDS: PIPERACILLIN-TAZOBACTAM 3.375 GM in SODIUM CHLORIDE 0.9% 100 ML IVPB SCH (08:06)
[2019-04-20] MEDS: METOPROLOL TARTRATE 25 MG TAB PO SCH (08:06)
[2019-04-20] MEDS: APIXABAN 2.5 MG TABLET PO SCH (08:06)
[2019-04-20 09:14] VITALS: BP 119/69; PULSE 75; RESP 20; TEMP 98.4
--- NOTE | 2019-04-20 10:13 | P.HPIM ---
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 with resultant right-sided hemiparesis with contraction of the right upper extremity, according to the he was 47-year-old at that time and he had recovered good from it and he has been walking using the walker, patient unfortunately 3 years ago fell and landed on a concrete surface and developed to have a significant intraparenchymal bleed for which she was transported to [facility] underwent ashley hole procedure and that left him bed bound with significant loss of vision and significant loss of motion and the patient developed to have a significant dysphagia he has been residing at [facility] on the [place] under the care of Dr. Navarro apparently patient developed to have a significant abdominal pain associated with nausea vomiting and diarrhea and he was diagnosed with no rotavirus at that time Dr. Navarro came to see the patient and she found that he has a mass in his abdomen for which she was sent to the ER at [facility] where a computed tomography scan of the abdomen was done that showed a significant abdominal aortic aneurysm almost 11 cm and the patient computed tomography scan of the brain did not show any evidence of acute abnormalities however his chest x-ray showed right lower lobe pneumonia patient was admitted to the hospital he was started on IV antibiotic had a long conversation with his as well as both daughters and I recommended for the patient to go on palliative care/hospice care at this time we'll get a continue to treat the patient until the patient's is in full agreement with that she is not ready for hospice at that time he had patient will be admitted to the hospital and he would be started on IV antibiotic and will be monitored patient is having hard time swallowing he is not even able to drink water or anything with a straw without it and he is clenching his mouth and family stated that he is DO NOT RESUSCITATE dear not interested in any vascular surgery consultation as he is not a candidate for any surgical procedure they were aware of the poor prognosis and outcome as the patient he may have a burst aneurysm at this point in time per Review of Systems ROS unobtainable: due to mental status Past Medical History Past Medical History: Coronary Artery Disease (CAD), CVA/TIA, Diabetes Mellitus, Hypertension, Osteoarthritis (OA) Additional Past Medical History / Comment(s): PT IS A POOR HISTORIAN. cva at 47 years old right side and speech, yes and no only questions AND STATED AT TIME HE MIXES THE YES AND NO RESPONSES UP. 2012 FELL HIT HEAD HAD Brain bleed AND STATED HE HAD SX TO REMOVE A BLOOD CLOT, FX RIBS, RT SHOULDER, LT HIP D/T FALLS,OSTEOPOROSIS, CATARACTS- STATED HE IS ALMOST BLIND GLASSES DID'NT HELP SO HE DOES'NT WEAR THEM. PT NEEDS ASSIST WITH EATING, ADLS, STATED HE IS UNABLE TO STAND ON HIS OWN. GETS ASSIST OF 2 FROM BED TO CHAIR. INCONT OF BOTH DARIAN/URINE WEARS A BRIEF. History of Any Multi-Drug Resistant Organisms: MRSA Date of last positivie culture/infection: 10/12/17 MDRO Source:: LEG Past Surgical History: Cholecystectomy, Joint Replacement Additional Past Surgical History / Comment(s): LT HIP REPLACMENT, 2012- BRAIN SX TO REMOVED BLOOD CLOT Past Anesthesia/Blood Transfusion Reactions: No Reported Reaction Smoking Status: Former smoker - Past Family History Mother Family Medical History: Cancer Additional Family Medical History / Comment(s): MOM AGE 36 FROM UTERINE CANCER Father Family Medical History: Coronary Artery Disease (CAD) (Father at age 57 from CAD.), Myocardial Infarction ([place]) Additional Family Medical History / Comment(s): AGE 56 FROM [place] Sister(s) Family Medical History: Diabetes Mellitus (Patient has one sister who from diabetes complications.) Daughter(s) Family Medical History: No Reported History (Patient has 2 daughters no major medical problems.) Medications and Allergies Home Medications Medication Instructions Recorded Confirmed Type Bismuth Subsalicylate 524 mg PO Q4H PRN 07/29/17 04/18/19 History [Pepto-Bismol] Calcium Carbonate/Vitamin D3 1 tab PO BID@0900,209907/29/17 04/18/19 History [Calcium 600-Vit D3 400 Caplet] Lactose-Reduced Food [Ensure Plus] 1 can PO PC-TID 07/29/17 04/18/19 History Metoprolol Tartrate [Lopressor] 25 mg PO BID@0900,209907/29/17 04/18/19 History Pioglitazone [Actos] 15 mg PO DAILY@0907/29/17 04/18/19 History ALPRAZolam [Xanax] 0.25 mg PO HS@199904/18/19 04/18/19 History Acetaminophen [Tylenol 8 Hour] 650 mg PO BID@0900,209904/18/19 04/18/19 History Acetaminophen [Tylenol 8 Hour] 650 mg PO Q4H PRN 04/18/19 04/18/19 History Ammonium Lactate Lotion 1 applic TOPICAL BID 04/18/19 04/18/19 History [Lac-Hydrin 12% Lotion] Apixaban [Eliquis] 2.5 mg PO BID@899,209904/18/19 04/18/19 History Arginaid Extra 8 oz PO DAILY@0804/18/19 04/18/19 History Furosemide [Lasix] 20 mg PO DAILY@0900 04/18/19 04/18/19 History INSULIN ASPART (NovoLOG) [NovoLOG 6 unit SQ ONCE PRN 04/18/19 04/18/19 History (formulary)] Insulin Aspart [NovoLOG] 7 units SQ DAILY 04/18/19 04/18/19 History Losartan [Cozaar] 25 mg PO Q48H 04/18/19 04/18/19 History Magnesium Hydroxide [Milk of 2,400 mg PO DAILY PRN 04/18/19 04/18/19 History Magnesia] Ondansetron Odt [Zofran Odt] 4 mg PO DAILY@0900 04/18/19 04/18/19 History Triamcinolone 0.1% Cream [Kenalog 1 applicatio TOPICAL MOWEFR 04/18/19 04/18/19 History 0.1% Cream] Allergies Allergy/AdvReac Type Severity Reaction Status Date / Time No Known Allergies Allergy Verified 04/18/19 22:54 Physical Exam Vitals: Vital Signs Temp Pulse Resp BP Pulse Ox 04/18/19 19:30 86 18 105/63 92 L 04/18/19 17:00 93 18 97/69 97 04/18/19 16:00 96 18 110/73 96 04/18/19 15:05 98 18 108/87 96 04/18/19 14:47 98.5 F 98 18 102/66 92 L Intake and Output 04/18/19 04/18/19 04/18/19 06:59 14:59 22:59 Output Total 100 Balance -100 Output: Urine 100 Uretheral (Lugo) 100 Other: Weight 65.771 kg HEENT: Patient does appear to have a scar further ashley hole procedure on the right side, he developed to have us called abrasion to the left side, pupils were small sluggish reaction to light clenches his teeth could not evaluate his oral cavity. Neck: Supple, no JVD, decreased carotid upstroke bilaterally. Chest: Decreased breath sounds at the bases, few rhonchi, significant egophony for the right lower third no chest wall tenderness no intercostal retractions. Heart: First heart sound is depressed, second heart sounds normal, there is systolic ejection murmur 2/6 left sternal border. Abdomen: Soft, nontender, nondistended, positive bowel sounds. Extremities: Trace edema, no calf tenderness, dorsalis pedis +1 bilaterally. Neurologic examination: Patient does appear to have right sided patient with contracture of the right upper extremity and significant weakness in the right lower extremity, patient is not following any commands at this time and he is not able to swallow Results CBC & Chem 7: 04/18/19 15:05 04/18/19 15:05 Labs: Abnormal Lab Results - Last 24 Hours (Table) 04/18/19 04/18/19 04/18/19 Range/Units 15:05 15:05 15:05 RBC 3.44 L (4.30-5.90) m/uL Hgb 10.6 L (13.0-17.5) gm/dL Hct 35.1 L (39.0-53.0) % MCV 102.1 H (80.0-100.0) fL MCHC 30.2 L (31.0-37.0) g/dL Plt Count 119 L (150-450) k/uL Lymphocytes # 0.8 L (1.0-4.8) k/uL PT 13.9 H (9.0-12.0) sec INR 1.4 H (<1.2) Sodium 157 H (137-145) mmol/L Potassium 3.4 L (3.5-5.1) mmol/L Chloride 126 H (98-107) mmol/L Carbon Dioxide 21 L (22-30) mmol/L BUN 93 H (9-20) mg/dL Creatinine 3.84 H (0.66-1.25) mg/dL Glucose 325 H (74-99) mg/dL POC Glucose (mg/dL) (75-99) mg/dL Plasma Lactic Acid Booker (0.7-2.0) mmol/L Calcium 8.0 L (8.4-10.2) mg/dL Alkaline Phosphatase 169 H (38-126) U/L Total Protein 5.9 L (6.3-8.2) g/dL Albumin 2.7 L (3.5-5.0) g/dL Amylase <30 L (30-110) U/L Urine Protein (Negative) Urine Glucose (UA) (Negative) Amorphous Sediment (None) /hpf Urine Bacteria (None) /hpf Urine Mucus (None) /hpf 04/18/19 04/18/19 04/18/19 Range/Units 15:05 15:08 15:20 RBC (4.30-5.90) m/uL Hgb (13.0-17.5) gm/dL Hct (39.0-53.0) % MCV (80.0-100.0) fL MCHC (31.0-37.0) g/dL Plt Count (150-450) k/uL Lymphocytes # (1.0-4.8) k/uL PT (9.0-12.0) sec INR (<1.2) Sodium (137-145) mmol/L Potassium (3.5-5.1) mmol/L Chloride (98-107) mmol/L Carbon Dioxide (22-30) mmol/L BUN (9-20) mg/dL Creatinine (0.66-1.25) mg/dL Glucose (74-99) mg/dL POC Glucose (mg/dL) 366 H (75-99) mg/dL Plasma Lactic Acid Booker 5.6 H* (0.7-2.0) mmol/L Calcium (8.4-10.2) mg/dL Alkaline Phosphatase (38-126) U/L Total Protein (6.3-8.2) g/dL Albumin (3.5-5.0) g/dL Amylase (30-110) U/L Urine Protein Trace H (Negative) Urine Glucose (UA) 4+ H (Negative) Amorphous Sediment Rare H (None) /hpf Urine Bacteria Rare H (None) /hpf Urine Mucus Rare H (None) /hpf Thrombosis Risk Factor Assmnt - DVT/VTE Prophylaxis DVT/VTE Prophylaxis: Pharmacologic Prophylaxis ordered, Mechanical Prophylaxis ordered Assessment and Plan Assessment: Assessment and plan: 1. Acute respiratory failure secondary to right lower lobe pneumonia. Continue patient on IV antibiotic in the form of Levaquin 500 mg piggyback every 48 hours, continue with Zosyn 3.375 g IV piggyback every 8 hours, sputum cultures if possible, continue to monitor blood cultures as well, patient is finishing his mouth point in time is not able to get any nebulized treatment or any sputum culture at this time, continue IV fluid resuscitation in the form of half-normal saline at 100 mL per hour. 2. Hypernatremia secondary to hypovolemia. Start the patient on IV fluid in the form of normal saline at cc an hour. Monitor the patient CMP. 3. Acute kidney injury on chronic kidney disease stage III Baseline creatinine is 1.88. Continue patient on half-normal saline at 100 mL an hour, discontinue diuretics, discontinue ibuprofen, monitor the patient CMP in the next 24 hours. 4. Recent Norovirus gastroenteritis. Place patient on contact isolation continue IV fluid resuscitation. 5. Remote history of ischemic cerebrovascular accident in the left middle cerebral artery with right-sided hemiplegia followed by intracranial bleed traumatic post ashley hole procedure. Patient with right-sided hemiplegia at this time dysphagia And not following much commands. 6. DVT of the right lower extremity that was negative back in 2018. Patient has been on Eliquis for the past 2 years. 7. CAD. Continue metoprolol 25 mg orally twice every day. 8. Diabetes mellitus type 2. Start the patient on sliding scale insulin. 9. Hypertension and hypertensive cardiovascular disease patient is not able to take and medication at this point in time we'll continue to monitor. 10. DVT prophylaxis. Was on Eliquis not able to taken medications 11. GI prophylaxis. Continue PPI. 12. Patient is DO NOT RESUSCITATE . 13. Overall prognosis is guarded discussed with the family hospice care and palliative care. 14. Admit to inpatient. Estimate a length of stay 2 midnights.
[2019-04-20] MEDS ORDERED: SODIUM CHLORIDE 0.45% 1,000 ML IV SCH (10:15)
[2019-04-20] MEDS ORDERED: LEVOFLOXACIN 500MG-D5W PMX 500 MG in DEXTROSE/WATER 1 100ML.BAG IVPB SCH (11:00)
--- NOTE | 2019-04-20 12:02 | P.DS ---
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 with resultant right-sided hemiparesis with contraction of the right upper extremity, according to the he was 47-year-old at that time and he had recovered good from it and he has been walking using the walker, patient unfortunately 3 years ago fell and landed on a concrete surface and developed to have a significant intraparenchymal bleed for which she was transported to [facility] underwent ashley hole procedure and that left him bed bound with significant loss of vision and significant loss of motion and the patient developed to have a significant dysphagia he has been residing at [facility] on the [place] under the care of Dr. Navarro apparently patient developed to have a significant abdominal pain associated with nausea vomiting and diarrhea and he was diagnosed with no rotavirus at that time Dr. Navarro came to see the patient and she found that he has a mass in his abdomen for which she was sent to the ER at [facility] where a computed tomography scan of the abdomen was done that showed a significant abdominal aortic aneurysm almost 11 cm and the patient computed tomography scan of the brain did not show any evidence of acute abnormalities however his chest x-ray showed right lower lobe pneumonia patient was admitted to the hospital he was started on IV antibiotic had a long conversation with his as well as both daughters and I recommended for the patient to go on palliative care/hospice care at this time we'll get a continue to treat the patient until the patient's is in full agreement with that she is not ready for hospice at that time he had patient will be admitted to the hospital and he would be started on IV antibiotic and will be monitored patient is having hard time swallowing he is not even able to drink water or anything with a straw without it and he is clenching his mouth and family stated that he is DO NOT RESUSCITATE dear not interested in any vascular surgery consultation as he is not a candidate for any surgical procedure they were aware of the poor prognosis and outcome as the patient he may have a burst aneurysm at this point in time 04/19: Family are entertaining hospice care. Patient's is having difficulty with this. Patient has been evaluated by speech therapy on able to swallow, at high risk for aspiration and will be nothing by mouth. Patient will be needing on current regime and plan to reevaluate in the morning. Hospice will be meeting with the family. 04/20: I have met with [facility] and plan is for discharge back to [facility] under hospice care. Medications have been provided for comfort care. Patient will be discharged once arrangements are completed. Discharge diagnoses: 1. Acute respiratory failure secondary to right lower lobe pneumonia. 2. Hypernatremia secondary to hypovolemia. 3. Acute kidney injury on chronic kidney disease stage III 4. Recent Norovirus gastroenteritis. 5. Remote history of ischemic cerebrovascular accident in the left middle cerebral artery with right-sided hemiplegia followed by intracranial bleed traumatic post ashley hole procedure. 6. DVT of the right lower extremity that was negative back in 2018. 7. CAD. 8. Diabetes mellitus type 2. 9. Hypertension and hypertensive cardiovascular disease Discharge plan: Return to [facility] with [facility] Impression and plan of care have been directed as dictated by the signing physician. Grace Laird nurse practitioner acting as scribe for signing physician. Patient Condition at Discharge: Stable Plan - Discharge Summary Discharge Rx Participant: No New Discharge Prescriptions: New LORazepam ORAL CONC [Ativan Intensol] 2 mg PO Q4HR PRN #30 ml PRN Reason: Anxiety Atropine Ophth Soln 1% 5Ml [Isopto Atropine 1% 5Ml] 2 drops PO Q4HR PRN #1 bottle PRN Reason: Secretions MORPHINE ORAL DUANE CONC 20mg/mL [Roxanol Oral Soln Conc 20MG/ML] 5 mg PO Q4H PRN #30 ml PRN Reason: Pain Continue Triamcinolone 0.1% Cream [Kenalog 0.1% Cream] 1 applicatio TOPICAL MOWEFR Ammonium Lactate Lotion [Lac-Hydrin 12% Lotion] 1 applic TOPICAL BID Discontinued Bismuth Subsalicylate [Pepto-Bismol] 524 mg PO Q4H PRN PRN Reason: Loose Stool Lactose-Reduced Food [Ensure Plus] 1 can PO PC-TID Metoprolol Tartrate [Lopressor] 25 mg PO BID@0900,2100 Calcium Carbonate/Vitamin D3 [Calcium 600-Vit D3 400 Caplet] 1 tab PO BID@0900,2100 Pioglitazone [Actos] 15 mg PO DAILY@0900 INSULIN ASPART (NovoLOG) [NovoLOG (formulary)] 6 unit SQ ONCE PRN PRN Reason: SUGAR OVER 496 Ondansetron Odt [Zofran Odt] 4 mg PO DAILY@0900 Insulin Aspart [NovoLOG] 7 units SQ DAILY Magnesium Hydroxide [Milk of Magnesia] 2,400 mg PO DAILY PRN PRN Reason: Constipation Apixaban [Eliquis] 2.5 mg PO BID@0900,2100 Acetaminophen [Tylenol 8 Hour] 650 mg PO Q4H PRN PRN Reason: Pain Acetaminophen [Tylenol 8 Hour] 650 mg PO BID@0900,2100 ALPRAZolam [Xanax] 0.25 mg PO HS@1999 Losartan [Cozaar] 25 mg PO Q48H Furosemide [Lasix] 20 mg PO DAILY@0900 Arginaid Extra 8 oz PO DAILY@0800 Discharge Medication List Ammonium Lactate Lotion [Lac-Hydrin 12% Lotion] 1 applic TOPICAL BID 04/18/19 [History] Triamcinolone 0.1% Cream [Kenalog 0.1% Cream] 1 applicatio TOPICAL MOWEFR 04/18/19 [History] Atropine Ophth Soln 1% 5Ml [Isopto Atropine 1% 5Ml] 2 drops PO Q4HR PRN #1 bottle 04/20/19 [Rx] LORazepam ORAL CONC [Ativan Intensol] 2 mg PO Q4HR PRN #30 ml 04/20/19 [Rx] MORPHINE ORAL DUANE CONC 20mg/mL [Roxanol Oral Soln Conc 20MG/ML] 5 mg PO Q4H PRN #30 ml 04/20/19 [Rx] Follow up Appointment(s)/Referral(s): Vicki Navarro MD [Primary Care Provider] - 1-2 days
--- NOTE | 2019-04-20 12:13 | P.PN ---
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 with resultant right-sided hemiparesis with contraction of the right upper extremity, according to the he was 47-year-old at that time and he had recovered good from it and he has been walking using the walker, patient unfortunately 3 years ago fell and landed on a concrete surface and developed to have a significant intraparenchymal bleed for which she was transported to [facility] underwent ashley hole procedure and that left him bed bound with significant loss of vision and significant loss of motion and the patient developed to have a significant dysphagia he has been residing at [facility] under the care of Dr. Navarro apparently patient developed to have a significant abdominal pain associated with nausea vomiting and diarrhea and he was diagnosed with no rotavirus at that time Dr. Navarro came to see the patient and she found that he has a mass in his abdomen for which she was sent to the ER at [facility] where a computed tomography scan of the abdomen was done that showed a significant abdominal aortic aneurysm almost 11 cm and the patient computed tomography scan of the brain did not show any evidence of acute abnormalities however his chest x-ray showed right lower lobe pneumonia patient was admitted to the hospital he was started on IV antibiotic had a long conversation with his as well as both daughters and I recommended for the patient to go on palliative care/hospice care at this time we'll get a continue to treat the patient until the patient's is in full agreement with that she is not ready for hospice at that time he had patient will be admitted to the hospital and he would be started on IV antibiotic and will be monitored patient is having hard time swallowing he is not even able to drink water or anything with a straw without it and he is clenching his mouth and family stated that he is DO NOT RESUSCITATE dear not interested in any vascular surgery consultation as he is not a candidate for any surgical procedure they were aware of the poor prognosis and outcome as the patient he may have a burst aneurysm at this point in time Review of Systems ROS unobtainable: due to mental status Objective - Vital Signs Vital signs: Vital Signs Temp 97.8 F 04/19/19 09:10 Pulse 87 04/19/19 09:10 Resp 17 04/19/19 09:10 BP 107/60 04/19/19 09:10 Pulse Ox 93 L 04/19/19 09:10 Intake & Output 04/18/19 04/19/19 04/19/19 18:59 06:59 18:59 Output Total 100 300 Balance -100 -300 Weight 65.771 kg 66.5 kg Output: Urine 100 300 Uretheral (Lugo) 100 Other: Voiding Method Incontinent Incontinent Indwelling Catheter Indwelling Catheter # Bowel Movements 1 - Exam HEENT: Patient does appear to have a scar further ashley hole procedure on the right side, he developed to have us called abrasion to the left side, pupils were small sluggish reaction to light clenches his teeth could not evaluate his oral cavity. Neck: Supple, no JVD, decreased carotid upstroke bilaterally. Chest: Decreased breath sounds at the bases, few rhonchi, significant egophony for the right lower third no chest wall tenderness no intercostal retractions. Heart: First heart sound is depressed, second heart sounds normal, there is sy stolic ejection murmur 2/6 left sternal border. Abdomen: Soft, nontender, nondistended, positive bowel sounds. Extremities: Trace edema, no calf tenderness, dorsalis pedis +1 bilaterally. Neurologic examination: Patient does appear to have right sided patient with contracture of the right upper extremity and significant weakness in the right lower extremity, patient is not following any commands at this time and he is not able to swallow - Labs CBC & Chem 7: 04/18/19 15:05 04/18/19 15:05 Labs: Abnormal Lab Results - Last 24 Hours (Table) 04/18/19 04/18/19 04/18/19 Range/Units 15:05 15:05 15:05 RBC 3.44 L (4.30-5.90) m/uL Hgb 10.6 L (13.0-17.5) gm/dL Hct 35.1 L (39.0-53.0) % MCV 102.1 H (80.0-100.0) fL MCHC 30.2 L (31.0-37.0) g/dL Plt Count 119 L (150-450) k/uL Lymphocytes # 0.8 L (1.0-4.8) k/uL PT 13.9 H (9.0-12.0) sec INR 1.4 H (<1.2) Sodium 157 H (137-145) mmol/L Potassium 3.4 L (3.5-5.1) mmol/L Chloride 126 H (98-107) mmol/L Carbon Dioxide 21 L (22-30) mmol/L BUN 93 H (9-20) mg/dL Creatinine 3.84 H (0.66-1.25) mg/dL Glucose 325 H (74-99) mg/dL POC Glucose (mg/dL) (75-99) mg/dL Plasma Lactic Acid Booker (0.7-2.0) mmol/L Calcium 8.0 L (8.4-10.2) mg/dL Alkaline Phosphatase 169 H (38-126) U/L Total Protein 5.9 L (6.3-8.2) g/dL Albumin 2.7 L (3.5-5.0) g/dL Amylase <30 L (30-110) U/L Urine Protein (Negative) Urine Glucose (UA) (Negative) Amorphous Sediment (None) /hpf Urine Bacteria (None) /hpf Urine Mucus (None) /hpf 04/18/19 04/18/19 04/18/19 Range/Units 15:05 15:08 15:20 RBC (4.30-5.90) m/uL Hgb (13.0-17.5) gm/dL Hct (39.0-53.0) % MCV (80.0-100.0) fL MCHC (31.0-37.0) g/dL Plt Count (150-450) k/uL Lymphocytes # (1.0-4.8) k/uL PT (9.0-12.0) sec INR (<1.2) Sodium (137-145) mmol/L Potassium (3.5-5.1) mmol/L Chloride (98-107) mmol/L Carbon Dioxide (22-30) mmol/L BUN (9-20) mg/dL Creatinine (0.66-1.25) mg/dL Glucose (74-99) mg/dL POC Glucose (mg/dL) 366 H (75-99) mg/dL Plasma Lactic Acid Booker 5.6 H* (0.7-2.0) mmol/L Calcium (8.4-10.2) mg/dL Alkaline Phosphatase (38-126) U/L Total Protein (6.3-8.2) g/dL Albumin (3.5-5.0) g/dL Amylase (30-110) U/L Urine Protein Trace H (Negative) Urine Glucose (UA) 4+ H (Negative) Amorphous Sediment Rare H (None) /hpf Urine Bacteria Rare H (None) /hpf Urine Mucus Rare H (None) /hpf 04/18/19 04/18/19 04/19/19 Range/Units 19:12 23:04 04:40 RBC (4.30-5.90) m/uL Hgb (13.0-17.5) gm/dL Hct (39.0-53.0) % MCV (80.0-100.0) fL MCHC (31.0-37.0) g/dL Plt Count (150-450) k/uL Lymphocytes # (1.0-4.8) k/uL PT (9.0-12.0) sec INR (<1.2) Sodium (137-145) mmol/L Potassium (3.5-5.1) mmol/L Chloride (98-107) mmol/L Carbon Dioxide (22-30) mmol/L BUN (9-20) mg/dL Creatinine (0.66-1.25) mg/dL Glucose (74-99) mg/dL POC Glucose (mg/dL) (75-99) mg/dL Plasma Lactic Acid Booker 2.8 H* 2.9 H* 3.0 H* (0.7-2.0) mmol/L Calcium (8.4-10.2) mg/dL Alkaline Phosphatase (38-126) U/L Total Protein (6.3-8.2) g/dL Albumin (3.5-5.0) g/dL Amylase (30-110) U/L Urine Protein (Negative) Urine Glucose (UA) (Negative) Amorphous Sediment (None) /hpf Urine Bacteria (None) /hpf Urine Mucus (None) /hpf 04/19/19 04/19/19 Range/Units 06:13 08:36 RBC (4.30-5.90) m/uL Hgb (13.0-17.5) gm/dL Hct (39.0-53.0) % MCV (80.0-100.0) fL MCHC (31.0-37.0) g/dL Plt Count (150-450) k/uL Lymphocytes # (1.0-4.8) k/uL PT (9.0-12.0) sec INR (<1.2) Sodium (137-145) mmol/L Potassium (3.5-5.1) mmol/L Chloride (98-107) mmol/L Carbon Dioxide (22-30) mmol/L BUN (9-20) mg/dL Creatinine (0.66-1.25) mg/dL Glucose (74-99) mg/dL POC Glucose (mg/dL) 374 H (75-99) mg/dL Plasma Lactic Acid Booker 3.5 H* (0.7-2.0) mmol/L Calcium (8.4-10.2) mg/dL Alkaline Phosphatase (38-126) U/L Total Protein (6.3-8.2) g/dL Albumin (3.5-5.0) g/dL Amylase (30-110) U/L Urine Protein (Negative) Urine Glucose (UA) (Negative) Amorphous Sediment (None) /hpf Urine Bacteria (None) /hpf Urine Mucus (None) /hpf Assessment and Plan Plan: 1. Acute respiratory failure secondary to right lower lobe pneumonia. Continue patient on IV antibiotic in the form of Levaquin 500 mg piggyback every 48 hours, continue with Zosyn 3.375 g IV piggyback every 8 hours, sputum cultures if possible, continue to monitor blood cultures as well, patient is finishing his mouth point in time is not able to get any nebulized treatment or any sputum culture at this time, continue IV fluid resuscitation in the form of half-normal saline at 100 mL per hour. She completely failed swallow evaluation. Nothing by mouth. 2. Hypernatremia secondary to hypovolemia. Start the patient on IV fluid in the form of normal saline at cc an hour. Monitor the patient CMP. 3. Acute kidney injury on chronic kidney disease stage III Baseline creatinine is 1.88. Continue patient on half-normal saline at 100 mL an hour, discontinue diuretics, discontinue ibuprofen, monitor the patient CMP in the next 24 hours. 4. Recent Norovirus gastroenteritis. Place patient on contact isolation continue IV fluid resuscitation. 5. Remote history of ischemic cerebrovascular accident in the left middle cerebral artery with right-sided hemiplegia followed by intracranial bleed traumatic post ashley hole procedure. Patient with right-sided hemiplegia at this time dysphagia And not following much commands. 6. DVT of the right lower extremity that was negative back in 2018. Patient has been on Eliquis for the past 2 years. 7. CAD. Continue metoprolol 25 mg orally twice every day. 8. Diabetes mellitus type 2. Start the patient on sliding scale insulin. 9. Hypertension and hypertensive cardiovascular disease patient is not able to take and medication at this point in time we'll continue to monitor. 10. DVT prophylaxis. Was on Eliquis not able to taken medications 11. GI prophylaxis. Continue PPI. 12. Patient is DO NOT RESUSCITATE . 13. Overall prognosis is guarded discussed with the family hospice care and palliative care. Discharge plan: Return to [facility] with [facility] care Impression and plan of care have been directed as dictated by the signing physician. Grace Laird nurse practitioner acting as scribe for signing physician.
[2019-04-20 12:22] LABS: Glucose,Whole Blood 310 mg/dL (75-99)
--- NOTE | 2019-04-26 02:19 | CDI ---
Documentation Clarification Form Date: 04/26/2019 From: Jay Acevedo Phone: If you have a question about this query, please contact Yolanda Harley [employer] Plant Operator at [phone] between 8am and 5pm. Admit Date: 04/18/2019 Discharge Date: 04/20/2019 Patient Name: Abdias Colmenares Visit Number: [id number] ATTENTION: The Clinical Documentation Specialists (CDI) and [facility] Coding Staff appreciate your assistance in clarifying documentation. Please respond to the clarification below the line at the bottom and electronically sign. The CDI & [facility] Coding staff will review the response and follow-up if needed. Please note: Queries are made part of the Legal Health Record. If you have any questions, please contact the author of this message via ITS. Dear Stephania Alvarado., The patient presented with Pneumonia and Acute respiratory failure. History/Risk Factors: DM type 2, Pneumonia, Hemiplegia, CKD stage 3 Clinical Indicators: WBC : 7.8 Lactic acid: 5.6H Blood cultures: negative Vitals signs on admission: Pulse Rate 98 98 96 Respiratory 18 18 18 O2 Sat by Pulse 92 L 96 96 Blood Pressure 102/66 108/87 110/73 Other Clinical Indicators: Treatment: IV antibiotic in the form of Levaquin and IV Fluids. In ED under impression by Ángel Beth MD documented as "Pneumonia, Sepsis, Dehydration". In your professional opinion, please clarify if these findings signify one of the following conditions, whether the condition is Sepsis ruled out SIRS, without underlying infectious process Sepsis Severe Sepsis Septic Shock Other, please specify Unable to determine sepsis MTDD
== END 2019-04-20 14:03 | DRG 871 ==
LOC: EC 14:39 → 3SCARD 16:46
PROVIDERS: ADMIT Internal Medicine; ATTEND Internal Medicine
DX: A41.9 Sepsis, unspecified organism (principal); J18.9 Pneumonia, unspecified organism; J96.00 Acute respiratory failure, unspecified whether with hypoxia or hypercapnia; E87.0 Hyperosmolality and hypernatremia; N17.9 Acute kidney failure, unspecified; I69.351 Hemiplegia and hemiparesis following cerebral infarction affecting right dominant side; I71.4 Abdominal aortic aneurysm, without rupture; Z96.642 Presence of left artificial hip joint; Z66 Do not resuscitate; Z51.5 Encounter for palliative care; E86.0 Dehydration; E86.1 Hypovolemia; E11.22 Type 2 diabetes mellitus with diabetic chronic kidney disease; E78.5 Hyperlipidemia, unspecified; I25.10 Atherosclerotic heart disease of native coronary artery without angina pectoris; I13.10 Hypertensive heart and chronic kidney disease without heart failure, with stage 1 through stage 4 chronic kidney disease, or unspecified chronic kidney disease; N18.3 Chronic kidney disease, stage 3 (moderate); K52.9 Noninfective gastroenteritis and colitis, unspecified; Z79.899 Other long term (current) drug therapy; Z79.4 Long term (current) use of insulin; Z79.01 Long term (current) use of anticoagulants; Z82.49 Family history of ischemic heart disease and other diseases of the circulatory system; Z83.3 Family history of diabetes mellitus; Z87.891 Personal history of nicotine dependence; Z86.14 Personal history of Methicillin resistant Staphylococcus aureus infection; Z90.49 Acquired absence of other specified parts of digestive tract; Z98.890 Other specified postprocedural states
CPT/HCPCS: 36415; 70450; 71045; 71046; 74176; 80053; 81001; 82150; 83605; 83690; 83735; 85025; 85610; 85730; 87040; 87502; 94760; 96361; 96365; 96366; 96367; 96375; 99285